=== PATIENT | female | born 2005 | race Caucasian/White ===

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

== ENCOUNTER 2024-08-03 17:02 | Emergency (ER) | payer SELFPAY | END 2024-08-03 17:51 | disposition home or self-care (01) | LOC: MW.ED 17:02 | DX: S70.362A Insect bite (nonvenomous), left thigh, initial encounter (principal); L03.116 Cellulitis of left lower limb; Z75.8 Other problems related to medical facilities and other health care; W57.XXXA Bitten or stung by nonvenomous insect and other nonvenomous arthropods, initial encounter | CPT/HCPCS: 99282 ==